=== PATIENT | male | born 1955 | race Caucasian/White ===

== ENCOUNTER 2018-03-31 15:23 | Emergency (ER) | payer OTHER ==
[2018-03-31 17:47] LABS: TROPONIN-I < 0.012 ng/ml (0.000-0.120)
== END 2018-03-31 19:22 | disposition home or self-care (01) ==
LOC: E/R 15:23
DX: R07.89 Other chest pain (principal)
CPT/HCPCS: 36415; 71045; 84484; 93005; 99285-25